=== PATIENT | female | born 1950 | race Caucasian/White ===

== ENCOUNTER 2020-06-16 13:18 | Emergency (ER) | payer OTHER, MEDICARE ==
[~2020-06-16] VITALS: Ht 154.9 cm; Wt 85.0 kg
[2020-06-16 14:26] VITALS: BP 166/77
== END 2020-06-16 14:26 | disposition home or self-care (01) | DRG 605 ==
LOC: ED 13:18
DX: S90.31XA Contusion of right foot, initial encounter (principal); I10 Essential (primary) hypertension; I25.2 Old myocardial infarction; W20.8XXA Other cause of strike by thrown, projected or falling object, initial encounter; Y92.219 Unspecified school as the place of occurrence of the external cause; Y99.0 Civilian activity done for income or pay